=== PATIENT | male | born 1985 | race Caucasian/White ===

== ENCOUNTER 2016-07-22 13:22 | Emergency (ER) | payer OTHER ==
[2016-07-22 13:37] VITALS: BP 158/103; PULSE 113; RESP 18; TEMP 98
--- NOTE | 2016-07-22 13:54 | ED ---
General Adult HPI - General Chief complaint: Needlestick/Exposure Stated complaint: IHS/Needle Stick Time Seen by Provider: 07/22/16 13:48 Source: patient, RN notes reviewed Mode of arrival: ambulatory Limitations: no limitations - History of Present Illness Initial comments: Patient 30-year-old male who presents emergency room today with chief complaint of a needlestick that occurred at work earlier today. He does admit that he was trying to put a insulin needle into sharp container when he accidentally poked himself in the palm of the left hand. Patient states did bleed initially. Patient denies any other complaints or symptoms. Patient denies any recent fever, chills, shortness of breath, chest pain, back pain, abdominal pain , nausea or vomiting, numbness or tingling, dysuria or hematuria, constipation or diarrhea, headaches or visual changes, or any other complaints. - Related Data Previous Rx's Medication Instructions Recorded Emtricitabine/Tenofovir [Truvada 1 each PO DAILY #28 tab 07/22/16 200 mg-300 mg Tablet] Raltegravir Potassium [Isentress] 400 mg PO BID #56 tablet 07/22/16 Allergies Allergy/AdvReac Type Severity Reaction Status Date / Time adhesive tape Allergy Rash/Hives Verified 07/22/16 14:42 Review of Systems ROS Statement: Those systems with pertinent positive or pertinent negative responses have been documented in the HPI. ROS Other: All systems not noted in ROS Statement are negative. Past Medical History Past Medical History: Hyperlipidemia Additional Past Medical History / Comment(s): recent rectal bleeding & change in bowel habits History of Any Multi-Drug Resistant Organisms: None Reported Additional Past Surgical History / Comment(s): wisdome teeth removed Past Anesthesia/Blood Transfusion Reactions: No Reported Reaction Past Psychological History: No Psychological Hx Reported Smoking Status: Never smoker Past Alcohol Use History: Occasional Past Drug Use History: None Reported General Exam - General Exam Comments Initial Comments: General: The patient is awake and alert, in no distress, and does not appear acutely ill. Eye: Pupils are equal, round and reactive to light, extra-ocular movements are intact. No nystagmus. There is normal conjunctiva bilaterally. No signs of icterus. Ears, nose, mouth and throat: There are moist mucous membranes and no oral lesions. Neck: The neck is supple, there is no tenderness or JVD. Cardiovascular: There is a regular rate and rhythm. No murmur, rub or gallop is appreciated. Respiratory: Lungs are clear to auscultation, respirations are non-labored, breath sounds are equal. No wheezes, stridor, rales, or rhonchi Musculoskeletal: Normal ROM, no tenderness. Strength 5/5. Sensation intact. Pulses equal bilaterally 2+. Neurological: A&O x 3. CN II-XII intact, There are no obvious motor or sensory deficits. Coordination appears grossly intact. Speech is normal. Skin: Skin is warm and dry and no rashes or lesions are noted. Psychiatric: Cooperative, appropriate mood & affect, normal judgment. Limitations: no limitations Course Vital Signs 07/22/16 13:34 Temperature 98.0 F Pulse Rate 113 H Respiratory 18 Rate Blood Pressure 158/103 O2 Sat by Pulse 98 Oximetry Medical Decision Making - Medical Decision Making Source blood test was unable be obtained for rapid HIV testing on the source patient. Case was discussed with attending physician Dr. Melvin did discuss case with infectious disease Dr. Cho resting patient here in the emergency room started patient on medications for prophylaxis for HIV discussed possible side effects with patient in detail. Patient will be discharged home with prescription advised follow-up with Dr. Cho. - Lab Data Lab Results 07/22/16 Range/Units 14:15 Hep C IgG Ab Negative (Negative) Disposition Clinical Impression: Needlestick injury accident Narrative: HIV prophylaxis Disposition: HOME SELF-CARE Condition: Good Instructions: Needle Stick Injuries (ED) Additional Instructions: Please follow-up with Dr. Cho. Phone number is [phone]. Please use medication as prescribed. Please return to emergency room for any other concerns. Prescriptions: Emtricitabine/Tenofovir [Truvada 200 mg-300 mg Tablet] 1 each PO DAILY #28 tab Raltegravir Potassium [Isentress] 400 mg PO BID #56 tablet Referrals: None,Stated [Primary Care Provider] - 1-2 days Binh Cho MD [STAFF PHYSICIAN] - 1-2 days Time of Disposition: 17:37
[2016-07-22 15:43] LABS: Hepatitis C Virus IgG Index 0.05
[2016-07-22 16:39] LABS: Hepatitis C Virus IgG Ab Negative (Negative)
[2016-07-22] MEDS ORDERED: [UNRECOGNIZED DRUG - OTHER] PO ONE ×2 (17:04)
[2016-07-22] MEDS ORDERED: RITONAVIR PO ONE ×2 (17:04)
[2016-07-22] MEDS ORDERED: LAMIVUDINE PO ONE ×2 (17:04)
[2016-07-23 07:38] LABS: HIV-1/HIV-2 Ab Screen NONREAC (NON REAC)
== END 2016-07-22 17:50 | disposition home or self-care (01) ==
LOC: EC 13:22
DX: S61.432A Puncture wound without foreign body of left hand, initial encounter (principal); W46.1XXA Contact with contaminated hypodermic needle, initial encounter; Y93.F9 Activity, other caregiving; Y99.0 Civilian activity done for income or pay; Z91.048 Other nonmedicinal substance allergy status
CPT/HCPCS: 36415; 86704; 86706; 86803; 87340; 87389; 99283

== ENCOUNTER 2023-07-29 07:14 | Day surgery (SDC) | payer BC, OTHER ==
[2023-07-28 11:44] VITALS: BMI 33.5
[2023-07-29] MEDS ORDERED: LIDOCAINE 1% (10MG/ML) FOR IV START INTRADERMA PRN (07:23)
[2023-07-29] MEDS: LACTATED RINGERS 1,000 ML IV SCH (07:24)
[2023-07-29 07:40] VITALS: TEMP 97
[2023-07-29] MEDS ORDERED: PROPOFOL 10 MG/ML 20 ML VIAL IV ONE (08:07)
[2023-07-29] MEDS ORDERED: LIDOCAINE 1% INJ 10MG/ML (20 ML MDV) ONE (08:07)
--- NOTE | 2023-07-29 08:23 | P.OP ---
Date of Procedure: 07/29/23 Preoperative Diagnosis: GI bleed Postoperative Diagnosis: Normal colon Procedure(s) Performed: Colonoscopy Anesthesia: MAC Surgeon: Bogdan Peña Pathology: none sent Condition: stable Disposition: PACU Description of Procedure: PROCEDURE: The patient was placed on the endoscopy table in the lateral p osition. Digital rectal examination was performed which revealed no abnormalities. The prostate was symmetrical without nodules. Flexible colonoscope was then placed in the patient's anus and passed throughout the entire colon. The ileocecal valve was visualized. The cecum, ascending, transverse, descending and sigmoid colon were normal. The rectum was normal as well. There were no masses, polyps or diverticula noted in the entire colon. SUMMARY OF FINDINGS: Normal colonoscopy.
[2023-07-29 09:26] VITALS: BP 151/94; PULSE 60; RESP 18
== END 2023-07-29 09:15 | disposition home or self-care (01) ==
LOC: ORWHC2ENDO 07:14
PROVIDERS: ATTEND Surgery
DX: K64.8 Other hemorrhoids (principal); I10 Essential (primary) hypertension; E78.5 Hyperlipidemia, unspecified; Z88.8 Allergy status to other drugs, medicaments and biological substances; Z79.899 Other long term (current) drug therapy
CPT/HCPCS: 45378; J2001; J2704

== ENCOUNTER 2023-07-30 05:40 | Day surgery (SDC) | payer BC, OTHER ==
[2023-07-28 11:44] VITALS: BMI 33.5
[~2023-07-30 05:40] MED LIST: Pre Op ABX Message 1 EACH MISC MISCELLANE ONE
[2023-07-30] MEDS ORDERED: SCOPOLAMINE 1 MG/72 HR PATCH TRANSDERM ONE (06:08)
[2023-07-30] MEDS: DEXAMETHASONE SOD PHOSPHATE 4 MG/ML 1 ML VIAL IV ONE (06:45)
[2023-07-30] MEDS: ONDANSETRON 4 MG/2 ML VIAL IVP ONE (06:45)
[2023-07-30] MEDS: ACETAMINOPHEN TAB 500 MG TAB PO PRN (06:45)
[2023-07-30] MEDS: LACTATED RINGERS 1,000 ML IV SCH (06:45)
[2023-07-30] MEDS: HEPARIN SODIUM,PORCINE 5,000 UNIT/ML 1 ML VIAL SQ PRN (06:58)
[2023-07-30] MEDS ORDERED: MIDAZOLAM 2 MG/2 ML VIAL IV PRN (07:00)
[2023-07-30 07:03] LABS: HCT 44.1 % (39.0-53.0); HGB 15.1 gm/dL (13.0-17.5); MCH 30.2 pg (25.0-35.0); MCHC 34.2 g/dL (31.0-37.0); MCV 88.4 fL (80.0-100.0); Mean Platelet Volume 7.2; Platelet Count 217 k/uL (150-450); RBC 4.99 m/uL (4.30-5.90); RDW 12.7 % (11.5-15.5); WBC 4.1 k/uL (3.8-10.6)
[2023-07-30] MEDS ORDERED: LIDOCAINE 1% INJ 10MG/ML (20 ML MDV) ONE (07:09)
[2023-07-30] MEDS ORDERED: PROPOFOL 10 MG/ML 20 ML VIAL IV ONE (07:09)
[2023-07-30] MEDS ORDERED: MIDAZOLAM 2 MG/2 ML VIAL ONE (07:09)
[2023-07-30] MEDS ORDERED: fentaNYL (PF) 50 MCG/ML 2 ML AMP ONE (07:09)
[2023-07-30] MEDS ORDERED: ceFAZolin 1 GM/50 ML BAG (PMX) ONE (07:09)
[2023-07-30] MEDS ORDERED: SUCCINYLCHOLINE CHLORIDE 200 MG/10 ML VIAL IV ONE (07:09)
[2023-07-30] MEDS: SODIUM CHLORIDE 0.9% 50 ML with ceFAZolin 2,000 MG IV ONE (07:12)
[2023-07-30] MEDS: LIDOCAINE 1%-EPI 1:100,000 50 ML VIAL SQ ONE ×2 (07:46)
[2023-07-30] MEDS: HYDROmorphone 0.5 MG/0.5 ML SYRINGE IVP PRN (08:16)
[2023-07-30] MEDS: MEPERIDINE 50 MG/ML SYRINGE IVP ONE ×2 (08:23→08:31)
--- NOTE | 2023-07-30 08:24 | P.GSHP ---
History of Present Illness H&P Date: 07/30/23 Chief Complaint: Internal and external hemorrhoids This is a 37-year-old male who has complaints of anal pain bleeding itching from internal and external hemorrhoids. Patient presents today for hemorrhoidectomy. Past Medical History Past Medical History: Hyperlipidemia Additional Past Medical History / Comment(s): HEMORRHOIDS History of Any Multi-Drug Resistant Organisms: None Reported Additional Past Surgical History / Comment(s): wisdome teeth removed Past Anesthesia/Blood Transfusion Reactions: No Reported Reaction Smoking Status: Never smoker - Past Family History Mother Family Medical History: Cancer Medications and Allergies Home Medications Medication Instructions Recorded Confirmed Type Griffin-3/Dha/Epa/Fish Oil [Fish Oil 4 each PO DAILY 07/28/23 07/29/23 History 1,000 mg Softgel] Rosuvastatin Calcium 5 mg PO DAILY 07/28/23 07/30/23 History lisinopriL [Zestril] 10 mg PO DAILY 07/28/23 07/30/23 History Allergies Allergy/AdvReac Type Severity Reaction Status Date / Time adhesive tape Allergy Rash/Hives Verified 07/30/23 06:57 Surgical - Exam Vital Signs Temp Pulse Resp BP Pulse Ox 97.7 F 73 18 150/90 98 07/30/23 06:27 07/30/23 06:27 07/30/23 06:27 07/30/23 06:27 07/30/23 06:27 - General well developed, well nourished - Eyes PERRL - ENT normal pinna - Neck no masses - Respiratory normal expansion - Cardiovascular Rhythm: regular - Abdomen Abdomen: soft, non tender - Rectum Large internal and external hemorrhoids Results - Labs 07/30/23 06:46 Assessment and Plan Assessment: Intralesional hemorrhoids. We'll perform hemorrhoidectomy.
[2023-07-30 08:35] VITALS: TEMP 96.9
[2023-07-30] MEDS: diphenhydrAMINE 50 MG/ML 1 ML VIAL IVP ONE ×2 (09:01→09:35)
[2023-07-30 09:11] VITALS: RESP 16
[2023-07-30 11:13] VITALS: BP 151/86; PULSE 73
--- NOTE | 2023-08-12 14:40 | P.OP ---
Date of Procedure: 07/30/23 Preoperative Diagnosis: internal/external hemorrhoids Postoperative Diagnosis: internal and external hemorrhoids Procedure(s) Performed: internal/external hemorrhoidectomy Anesthesia: DEEA Surgeon: Bogdan Peña Estimated Blood Loss (ml): 10 Pathology: other (hemorrhoids) Condition: stable Disposition: PACU Description of Procedure: the patient was placed the operative table in supine position. He [id number] He was then placed in the prone jackknife position. His anus was prepped and he sterile fashion. The anal tract of his anus. The patient had large hemorrhoids. The left lateral hemorrhoidal column was then grasped with a pair of Allis clamps. The needle harmonic scissors the hemorrhoid was performed. The right anterior and right posterior hemorrhoidal columns were dissected identical fashion. The anus was made for hemostasis. There is no bleeding seen. Gelfoam was placed the anus. Patient Toller procedure well. He was sent to recovery in stable condition.
== END 2023-07-30 11:26 | disposition home or self-care (01) ==
LOC: OR 05:40
PROVIDERS: ATTEND Surgery
DX: K64.8 Other hemorrhoids (principal); K64.4 Residual hemorrhoidal skin tags; K64.5 Perianal venous thrombosis; E78.5 Hyperlipidemia, unspecified; I10 Essential (primary) hypertension; Z79.899 Other long term (current) drug therapy; Z91.09 Other allergy status, other than to drugs and biological substances; Z88.5 Allergy status to narcotic agent
CPT/HCPCS: 88304; 85027; 46260; J2250; J0330; J1200; J1644; J1100; J2175; J2405; J0690 ×2; J2001; J3010; J2704; J1170